=== PATIENT | female | born 1950 | race Two or more races ===

== ENCOUNTER 2020-02-02 08:30 | Inpatient (IN) | payer OTHER ==
[~2020-02-02] VITALS: Ht 160 cm; Wt 71.7 kg
[2020-02-02] MEDS ORDERED: LEVO-T25 MCG PO (11:56)
[2020-02-02] MEDS ORDERED: BINOSTO70 MG PO (11:56)
[2020-02-02] MEDS ORDERED: VITAMIN C100 MG PO (11:56)
[2020-02-02] MEDS ORDERED: CITRACAL-VIT D1 EACH PO (11:57)
[2020-02-02] MEDS ORDERED: D3 + K2 DOTS 11 EACH PO (11:57)
[2020-02-09] MEDS ORDERED: VITAMIN C1000 M2 PO (09:16)
[2020-02-09] MEDS ORDERED: VITAMIN D310 MC4 PO (09:18)
[2020-02-09] MEDS ORDERED: LANSOPRAZOLE15 MG PO (09:20)
[2020-02-24] MEDS ORDERED: ELIQUIS5 MG PO ×2 (14:41→15:31)
[2020-02-27] MEDS ORDERED: ELIQUIS5 MG PO ×3 (13:12→16:16)
== END 2020-02-24 16:21 | disposition home or self-care (01) | DRG 737 ==
LOC: OB/GYN 02-09 06:00 → O/R 02-09 06:00 → SURH 02-09 08:30 → OB/GYN 02-09 16:04 → SURH 02-19 19:07
PROVIDERS: ADMIT Obstetrics & Gynecology Gynecologic Oncology; ATTEND Obstetrics & Gynecology Gynecologic Oncology
PROC: 0UT70ZZ Resection of Bilateral Fallopian Tubes, Open Approach (ICD-10-PCS; 2020-02-09)
PROC: 0UT20ZZ Resection of Bilateral Ovaries, Open Approach (ICD-10-PCS; 2020-02-09)
PROC: 0DTU0ZZ Resection of Omentum, Open Approach (ICD-10-PCS; 2020-02-09)
PROC: 0DTJ0ZZ Resection of Appendix, Open Approach (ICD-10-PCS; 2020-02-09)
PROC: 0DTN0ZZ Resection of Sigmoid Colon, Open Approach (ICD-10-PCS; 2020-02-09)
PROC: 0UT90ZZ Resection of Uterus, Open Approach (ICD-10-PCS; principal; 2020-02-09 10:00)
PROC: 02HV33Z Insertion of Infusion Device into Superior Vena Cava, Percutaneous Approach (ICD-10-PCS; 2020-02-12)
PROC: 3E0436Z Introduction of Nutritional Substance into Central Vein, Percutaneous Approach (ICD-10-PCS; 2020-02-12)
PROC: B54NZZZ Ultrasonography of Left Upper Extremity Veins (ICD-10-PCS; 2020-02-18)
DX: C56.2 Malignant neoplasm of left ovary (principal); C78.6 Secondary malignant neoplasm of retroperitoneum and peritoneum; C78.5 Secondary malignant neoplasm of large intestine and rectum; C79.82 Secondary malignant neoplasm of genital organs; I82.612 Acute embolism and thrombosis of superficial veins of left upper extremity; K56.7 Ileus, unspecified; T81.41XA Infection following a procedure, superficial incisional surgical site, initial encounter; K91.0 Vomiting following gastrointestinal surgery; C56.1 Malignant neoplasm of right ovary; C57.02 Malignant neoplasm of left fallopian tube; E03.8 Other specified hypothyroidism